=== PATIENT | male | born 2000 | race Caucasian/White ===

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

== ENCOUNTER → 2022-07-28 | Outpatient (CLI) | payer BC ==
[2022-07-29 07:06] LABS: VALPROIC ACID, TOTAL 62 ug/mL (50-100)
== END | disposition home or self-care (01) ==
LOC: LAB 15:54
PROVIDERS: ATTEND Psychiatry & Neurology Clinical Neurophysiology
DX: G40.309 Generalized idiopathic epilepsy and epileptic syndromes, not intractable, without status epilepticus (principal)

== ENCOUNTER 2024-08-01 04:47 | Inpatient (IN) | payer SELFPAY ==
[~2024-08-01] VITALS: Ht 193 cm; Wt 157.9 kg
[2024-08-01] VITALS (11 sets, daily range): BP systolic 121–171; BP diastolic 48–94
[2024-08-01] MEDS ORDERED: ADENOSINE 6 MG/2 ML VIAL IV ONE ×8 (05:00→13:05)
[2024-08-01] MEDS ORDERED: SODIUM CHLORIDE 0.9% 1,000 ML IV ONE ×4 (05:00→12:09)
[2024-08-01 05:54] LABS: BUN 7 mg/dl (9-23); CHLORIDE 103 mmol/L (98-107); POTASSIUM 4.1 mmol/L (3.4-5.1)
[2024-08-01 06:05] LABS: BASO % 0.3 % (0.0-1.0); EOS % 0.6 % (1.0-4.0); HEMATOCRIT 46.2 % (42.0-52.0); MEAN CELL VOLUME 87.8 fl (80.0-94.0); MEAN CORPUSCULAR HGB 29.5 pg (27.0-31.0); MEAN CORPUSCULAR HGB CONC 33.5 g/dl (33.0-37.0); MEAN PLATELET VOLUME 11.1 fl (9.6-12.3); MONO # 0.4 10*3/uL (0.1-1.0); MONO % 5.9 % (3.0-9.0); NEUT # 5.8 10*3/uL (2.3-7.9); NEUT % 89.7 % (47.0-73.0); PLATELET COUNT AUTOMATED 192 10*3/uL (130-400); RED BLOOD COUNT 5.26 10*6/uL (4.50-5.90); RED CELL DISTRI WIDTH 12.1 % (0-14.5); WHITE BLOOD COUNT 6.5 10*3/uL (4.8-10.8)
[2024-08-01] MEDS ORDERED: AMOX-CLAV 875-1 EACH PO (06:27)
[2024-08-01] MEDS ORDERED: DEPAKOTE ER500 MG PO (06:28)
[2024-08-01] MEDS ORDERED: ACETAMINOPHEN 325 MG TAB PO PRN (06:50)
[2024-08-01 08:08] LABS: FREE T4 1.17 ng/dl (0.89-1.76)
[2024-08-01] MEDS ORDERED: METOPROLOL SUCCINATE XR 25 MG TAB PO ONE (08:15)
[2024-08-01 08:26] LABS: BILIRUBIN Negative (Negative); BLOOD Negative (Negative); CLARITY Cloudy (Clear); COLOR Yellow (Yellow); GLUCOSE Negative (Negative); KETONE Negative (Negative); LEUKO ESTERASE Negative (Negative); NITRITE Negative (Negative); PH 7.5 (4.5-8.0); SPECIFIC GRAVITY 1.015 (1.001-1.030); UROBILINOGEN 0.2 E.U./dl (0.0-1.0)
[2024-08-01] MEDS ORDERED: ADENOSINE 12 MG IV ONE (08:30)
[2024-08-01] MEDS ORDERED: cefTRIAXone Sodium 10 ML IV SCH (08:30)
[2024-08-01 08:33] LABS: URINE AMPHETAMINES Negative (1000ng/ml); URINE BARBITURATES Negative (200ng/ml); URINE BENZODIAZEPINES Negative (200ng/ml); URINE CANNABINOIDS (THC) Negative (50ng/ml); URINE COCAINE Negative (300ng/ml); URINE METHADONE Negative (300ng/ml); URINE OPIATES Negative (300ng/ml); URINE PHENCYCLIDINE Negative (25ng/ml)
[2024-08-01 09:29] LABS: MUCOUS TRACE; RBC 0-2 rbc/hpf (0-2); WBC 0-2 wbc/hpf (0-5)
[2024-08-01] MEDS ORDERED: dilTIAZem Hydrochloride 100 ML IV SCH (11:55)
[2024-08-01] MEDS ORDERED: Amiodarone Hydrochloride 150 MG/3 ML VIAL IV ONE (12:08)
[2024-08-01] MEDS ORDERED: METOPROLOL SUCCINATE XR 50 MG TAB PO ONE (12:30)
[2024-08-01] MEDS ORDERED: DIVALPROEX ER 500 MG TAB PO ONE (12:55)
[2024-08-01] MEDS ORDERED: PERFLUTREN PROTEIN-A MICROSPHR 3 ML VIAL IV ONE (13:41)
[2024-08-01] MEDS ORDERED: METOPROLOL SUCCINATE XR 50 MG TAB PO SCH (22:00)
[2024-08-01] MEDS ORDERED: DIVALPROEX ER 500 MG TAB PO SCH (22:00)
[2024-08-02] VITALS: BP 143/68
[2024-08-02 04:00] VITALS: BP 145/58
[2024-08-02 07:33] LABS: HEMATOCRIT 40.6 % (42.0-52.0); MEAN CELL VOLUME 86.9 fl (80.0-94.0); MEAN CORPUSCULAR HGB 30.2 pg (27.0-31.0); MEAN CORPUSCULAR HGB CONC 34.7 g/dl (33.0-37.0); MEAN PLATELET VOLUME 10.2 fl (9.6-12.3); PLATELET COUNT AUTOMATED 171 10*3/uL (130-400); RED BLOOD COUNT 4.67 10*6/uL (4.50-5.90); RED CELL DISTRI WIDTH 12.9 % (0-14.5); WHITE BLOOD COUNT 2.6 10*3/uL (4.8-10.8)
[2024-08-02 07:46] LABS: MANUAL DIFF REFLEX YES
[2024-08-02 07:56] LABS: ALKALINE PHOSPHATASE 51 U/L (46-116); BUN 9 mg/dl (9-23); CHLORIDE 102 mmol/L (98-107); CHOLESTEROL 82 mg/dL (<200); LDL CHOLESTEROL 41 mg/dL (9-159); POTASSIUM 4.1 mmol/L (3.4-5.1); SGPT/ALT 177 U/L (5-49); TOTAL PROTEIN 6.2 gm/dL (6.0-8.0); TRIGLYCERIDES 79 mg/dl (<150)
[2024-08-02 08:00] VITALS: BP 128/65
[2024-08-02 08:11] LABS: BASOPHILS 1 % (0-1); TOTAL CELLS COUNTED 100 #CELLS
[2024-08-02 08:12] LABS: PLATELET SUFFICIENCY NORMAL (NORMAL)
[2024-08-02] MEDS ORDERED: METOPROLOL SUCCINATE XR 25 MG TAB PO SCH (10:00)
[2024-08-02] MEDS ORDERED: Enoxaparin Sodium 40 MG/0.4 ML SYR SC SCH (10:00)
[2024-08-02 12:00] VITALS: BP 120/75
[2024-08-02] MEDS ORDERED: METOPROLOL SUCC50 M1 PO (12:21)
[2024-08-02] MEDS ORDERED: OMNICEF300 MG PO (12:21)
== END 2024-08-02 13:16 | disposition home or self-care (01) | DRG 872 ==
LOC: ED 04:47 → EDHOLD 06:25 → ICCU 12:45
PROVIDERS: Internal Medicine; Student in an Organized Health Care Education/Training Program; ADMIT Internal Medicine; ATTEND Internal Medicine
DX: A41.9 Sepsis, unspecified organism (principal); I47.10 Supraventricular tachycardia, unspecified; G40.909 Epilepsy, unspecified, not intractable, without status epilepticus; R65.20 Severe sepsis without septic shock; R73.9 Hyperglycemia, unspecified; Z79.899 Other long term (current) drug therapy; Z82.49 Family history of ischemic heart disease and other diseases of the circulatory system; Z71.6 Tobacco abuse counseling; Z72.0 Tobacco use

== ENCOUNTER 2024-08-03 18:55 | Emergency (ER) | payer SELFPAY ==
[~2024-08-03] VITALS: Ht 193 cm; Wt 154.2 kg
[~2024-08-03 18:55] MED LIST changes: +AMOX-CLAV 875-1 EACH PO; +DEPAKOTE ER500 MG PO; +METOPROLOL SUCC50 M1 PO; +OMNICEF300 MG PO
[2024-08-03 19:42] VITALS: BP 137/63
[2024-08-03 19:42] LABS: BASO % 0.4 % (0.0-1.0); EOS # 0.1 10*3/uL (0.0-0.4); EOS % 5.1 % (1.0-4.0); HEMATOCRIT 38.6 % (42.0-52.0); MEAN CELL VOLUME 86.9 fl (80.0-94.0); MEAN CORPUSCULAR HGB 29.5 pg (27.0-31.0); MEAN CORPUSCULAR HGB CONC 33.9 g/dl (33.0-37.0); MEAN PLATELET VOLUME 10.5 fl (9.6-12.3); MONO # 0.2 10*3/uL (0.1-1.0); MONO % 10.2 % (3.0-9.0); NEUT % 43.2 % (47.0-73.0); PLATELET COUNT AUTOMATED 159 10*3/uL (130-400); RED BLOOD COUNT 4.44 10*6/uL (4.50-5.90); RED CELL DISTRI WIDTH 12.2 % (0-14.5); WHITE BLOOD COUNT 2.4 10*3/uL (4.8-10.8)
[2024-08-03 20:03] LABS: BUN 11 mg/dl (9-23); CHLORIDE 105 mmol/L (98-107); POTASSIUM 3.4 mmol/L (3.4-5.1)
== END 2024-08-03 20:25 | disposition home or self-care (01) ==
LOC: ED 18:55
PROVIDERS: Internal Medicine
DX: I47.19 Other supraventricular tachycardia (principal); R79.89 Other specified abnormal findings of blood chemistry; D72.819 Decreased white blood cell count, unspecified; D64.9 Anemia, unspecified; F17.200 Nicotine dependence, unspecified, uncomplicated

== ENCOUNTER 2024-08-13 22:45 | Emergency (ER) | payer SELFPAY ==
[~2024-08-13] VITALS: Ht 193 cm; Wt 154.2 kg
[2024-08-13] MEDS ORDERED: ADENOSINE 6 MG/2 ML VIAL IV ONE ×3 (22:55→23:10)
[2024-08-13] MEDS ORDERED: SODIUM CHLORIDE 0.9% 1,000 ML IV ONE ×2 (22:55→23:11)
[2024-08-13 23:04] VITALS: BP 146/77
[2024-08-13 23:17] LABS: BASO # 0.1 10*3/uL (0.0-0.1); BASO % 1.1 % (0.0-1.0); EOS # 0.1 10*3/uL (0.0-0.4); EOS % 1.5 % (1.0-4.0); HEMATOCRIT 39.3 % (42.0-52.0); MEAN CELL VOLUME 87.1 fl (80.0-94.0); MEAN CORPUSCULAR HGB 29.5 pg (27.0-31.0); MEAN CORPUSCULAR HGB CONC 33.8 g/dl (33.0-37.0); MONO # 0.7 10*3/uL (0.1-1.0); MONO % 14.3 % (3.0-9.0); NEUT # 2.2 10*3/uL (2.3-7.9); NEUT % 46.4 % (47.0-73.0); PLATELET COUNT AUTOMATED 266 10*3/uL (130-400); RED BLOOD COUNT 4.51 10*6/uL (4.50-5.90); RED CELL DISTRI WIDTH 12.9 % (0-14.5); WHITE BLOOD COUNT 4.6 10*3/uL (4.8-10.8)
[2024-08-13 23:47] LABS: BUN 8 mg/dl (9-23); CHLORIDE 104 mmol/L (98-107); POTASSIUM 3.7 mmol/L (3.4-5.1)
== END 2024-08-14 00:21 | disposition home or self-care (01) ==
LOC: ED 22:45
PROVIDERS: Internal Medicine
DX: I47.10 Supraventricular tachycardia, unspecified (principal); Z79.899 Other long term (current) drug therapy